=== PATIENT | male | born 1945 | race Caucasian/White ===

== ENCOUNTER 2024-02-15 12:42 | Outpatient (AMB) | payer MEDICARE, OTHER, SELFPAY ==
--- NOTE | 2024-02-15 13:03 | MHC.OFFVIS ---
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 Intake Note: New dx atherosclerotic seen on MRI feeling good Wool Cleaner Required: No Allergies atorvastatin Allergy (Unknown, Verified 01/31/19 00:00) pravastatin Allergy (Unknown, Verified 01/31/19 00:00) simvastatin Allergy (Unknown, Verified 01/31/19 00:00) Kmeanxn-ERU-EoJ Reductase Inhibitor [ZXQGMDU-SXH-AGV REDUCTASE INHIBITOR] Allergy (Unknown, Unverified 11/30/19 16:17) UNKNOWN Medication List - Last Reconciled 02/15/24 by Ross Diop MD ezetimibe 10 mg PO DAILY famotidine 20 mg PO DAILY fenofibrate nanocrystallized 145 mg PO DAILY mycophenolate mofetil 1,000 mg PO BID pyridostigmine bromide (Mestinon) 60 mg PO BID HPI Comments Details: Thank you for referring Tiffanie in cardiology consultation today for management of atherosclerotic cardiovascular disease. Patient is 78-year-old male says extremely elderly and does a lot of work outs without any restriction. Recently had a workup done because of his lower back issues and was noted to have significant atherosclerotic disease in his abdominal aorta. He has not had any significant cardiac symptoms of exertional chest pain or shortness of breath. He was longstanding history of hyperlipidemia but has been intolerant to multiple different statins as recorded in his chart. He is currently on Zetia and fenofibrate. No recent lipid panel is noted. He has no history of hypertension although noted that after recent COVID booster shot his blood pressure is significantly elevated. Blood pressures been gradually coming down. Today is slightly elevated but says due to stress from recent travel, he drove yesterday from [place]. He has had no history of hypertension. Denies any heart failure symptoms. Denies any prolonged palpitations, lightheadedness, syncope. [facility] Medical History Statin intolerance Review of Systems Const Denies chills, Denies daytime sleepiness, Denies fatigue, Denies fever(s), Denies frequent falls, Denies poor appetite, Denies snoring, Denies stops breathing during sleep, Denies weakness, Denies weight gain and Denies weight loss Eyes Denies loss of vision ENT Denies dizziness and Denies hearing loss Card Denies chest pain, Denies claudication, Denies leg edema, Denies lightheadedness, Denies palpitations, Denies dyspnea, Denies dyspnea on exertion and Denies orthopnea Resp Denies cough, Denies excessive phlegm production, Denies dyspnea, Denies dyspnea on exertion, Denies snoring and Denies wheezing GI Denies abdominal pain, Denies hematochezia, Denies change in bowel habits, Denies nausea and Denies vomiting Denies dysuria and Denies urinary frequency Musc Denies arthralgias, Denies muscle weakness, Denies numbness and Denies other (frequent falls) Skin/Breast Denies nail changes and Denies rash Neuro Denies Abnormal speech present, Denies dizziness, Denies frequent falls, Denies loss of vision, Denies memory loss, Denies numbness and Denies weakness Psych Denies depression and Denies memory loss Endo Denies fatigue and Denies palpitations Valdez/Lymph Reports easy bruising and Reports other (anemia) Aller/Immun Denies wheezing Physical Exam Vital Signs: Last Vital Signs Pulse 72 02/15/24 13:04 BP 142/72 H 02/15/24 13:04 BMI result Body Mass Index 22.4 Const General: cooperative, comfortable, no acute distress, alert, awake, Physically active and well groomed Nutritional Appearance: well nourished and thin Orientation/consciousness: patient oriented x3 Limitations: no limitations HEENT Head: Yes normocephalic and Yes atraumatic Neck Neck: Yes trachea midline, Yes supple and Yes no JVD Resp Effort & Inspection: normal respiratory effort Auscultation: clear to auscultation bilaterally Cardio Jugular venous distension: no JVD Palpation: normal PMI Rate: regular rate Rhythm: regular rhythm Heart sounds: S1 normal heart sound present, S2 normal heart sound present, no click, no gallops, no murmurs and no rubs GI Auscultation: normal bowel sounds Skin General skin exam: no rashes or lesions noted Neuro General: patient oriented x3 and no focal motor deficits Speech: No Abnormal speech present Extrem General: Yes no clubbing, cyanosis or edema Psych Appearance: grossly normal Office Procedures EKG Details: EKG shows normal sinus rhythm with right bundle-branch block 53203-Ipffupjnfhyhtdfad, Complete Assessment & Plan Assessment & Plan (1) Atherosclerotic cardiovascular disease: Code(s): I25.10 - Atherosclerotic heart disease of [place] coronary artery without angina pectoris Category: Medical Plan: Atherosclerotic cardiovascular disease with known prior carotid disease and now noted severe calcification abdominal aorta. We discussed about process of atherosclerosis being a systemic process. Based on right bundle-branch block which is unchanged. He currently has no significant symptoms although asymptomatic myocardial ischemia is likely. Would suggest exercise stress echocardiogram to assess functional capacity and presence of prognostically significant obstructive coronary artery disease. Will also suggest echocardiogram to evaluate for LV systolic and diastolic function to evaluate for wall motion abnormality. Meanwhile given diffuse atherosclerotic process I have advised him to start low-dose aspirin therapy. Also advised to follow-up lipid panel in near future along with CRP. Further treatment based on the findings of lipid panel may need further intensification of lipid therapy. This was discussed with him. His blood pressure is slightly elevated but there is increased stress recently given recent long travel. Advised to monitor blood pressure at home maintain a log. Will follow up in 6 weeks time, sooner p.r.n.. Thank allowing me to partake in his care Orders: Orders CRP High Sensitivity Today E78.5 - Hyperlipidemia, unspecified, I25.10 - Atherosclerotic heart disease of [place] coronary artery without angina pectoris CA echo transthoracic complete Today I25.10 - Atherosclerotic heart disease of [place] coronary artery without angina pectoris Lipid Panel Today I25.10 - Atherosclerotic heart disease of [place] coronary artery without angina pectoris CA echo stress exercise Today I25.10 - Atherosclerotic heart disease of [place] coronary artery without angina pectoris Medications: New aspirin (Ecotrin Low Strength) 81 mg PO DAILY 30 tabs 0RF I25.10 - Atherosclerotic heart disease of [place] coronary artery without angina pectoris Coding Level of Care Code New Pt Level 4 (90690) Complex EM visit Add On G2211 Diagnoses Atherosclerotic cardiovascular disease I25.10 CPT Codes EKG - CPT: 72675-Zvhvzdudldkmsikqj, Complete ([id number])
[2024-02-15 13:04] VITALS: BP 142/72; PULSE 72; BMI 22.4
== END 2024-02-15 13:42 | disposition home or self-care (01) ==
PROVIDERS: PCP Internal Medicine; Visit Provider Internal Medicine Cardiovascular Disease
DX: I25.10 Atherosclerotic heart disease of native coronary artery without angina pectoris (principal)
CPT/HCPCS: 93010; 99204; G2211

== ENCOUNTER → 2024-02-15 12:42 | Outpatient (BNVA) | payer MEDICARE, OTHER, SELFPAY | PROVIDERS: PCP Internal Medicine; Visit Provider Internal Medicine Cardiovascular Disease | DX: I25.10 Atherosclerotic heart disease of native coronary artery without angina pectoris (principal); E78.5 Hyperlipidemia, unspecified | CPT/HCPCS: 93005; 99202 ==

== ENCOUNTER → 2024-02-23 08:17 | Outpatient (REF) | payer MEDICARE, OTHER, SELFPAY ==
--- NOTE | 2024-02-23 08:23 | CA_ITS ---
Transthoracic Echocardiogram Patient (Last, First, Middle): Tiffanie Feliz A Gender: Male Date of : 1945 Age: 78 Procedure Date: 02/23/2024 Procedure Type: Transthoracic Echocardiogram Location: OP Height: 180.34 cm Weight: 79.38 kg BSA: 1.99 m2 Heart Rate: bpm BP: 135 / 80 mmHg Preflight Mechanic: MUSTAPHA Referring MD: Ross Diop MD Grader Green Meat: Ross Diop MD Symptoms: I25.10 - Atherosclerotic heart disease of [place] coronary artery without... Study Quality: Adequate ECG Rhythm: Sinus Conclusions: - 1. Normal LV ejection fraction 55-60% with grade 1 diastolic dysfunction with suggestion of underlying coronary disease 2. Mild aortic regurgitation 3. Mildly dilated ascending aorta at 3.7 cm 4. No gross pericardial effusion Findings Left Ventricle Normal left ventricular size, thickness, and systolic function. The visually estimated ejection fraction is between 55-60%. Spectral Doppler is indicative of an impaired relaxation filling pattern. E/E prime ratio is <8, consistent with normal filling pressures. Evidence suggests grade I (mild) diastolic dysfunction. Wall Motion Rest Echo Findings The inferoseptal wall, inferolateral wall, the basal inferior, and mid inferior segments are hypokinetic. All other scored wall segments showed normal motion. Right Ventricle Normal right ventricular cavity size and systolic function. Atria Both atria are normal in size. There is no evidence of interatrial shunt. Aortic Valve There is mild calcification of the aortic valve. There is no aortic valve stenosis. There is mild aortic valve regurgitation. Mitral Valve Normal mitral valve structure and function. There is mild mitral annular calcification. There is trace mitral valve regurgitation. There is no mitral valve stenosis. Pulmonic Valve The pulmonic valve is likely normal. Tricuspid Valve Normal tricuspid valve structure. Tricuspid regurgitation envelope is inadequate for calculation of right ventricular systolic pressure. Normal right atrial pressure. Great Vessels The pulmonary artery was not well visualized. There is mild dilatation of the ascending aorta measuring 3.70 cm. Venous The inferior vena cava is normal in size and collapses greater than 50% with inspiration. Pericardium/Pleural There is no evidence of pericardial effusion. Measurements 2D Linear Measurements IVSd: 1.07 0.6-0.9/0.6-1.0 cm LVIDd: 4.23 3.9-5.3/4.2-5.9 cm LVIDd Index: 2.13 2.4-3.2/2.2-3.1 cm/m2 LVIDs: 2.66 2.0-3.6 cm LVPWd: 0.96 0.7-1.1 cm LA Diam: 2.80 2.7-3.8/3.0-4.0 cm LAIDs Index: 1.41 1.5-2.3 cm/m2 LV Mass: 176.90 67-162/88-224 g LV Mass Index: 88.90 43-95/49-115 g/m2 LVOT Diam: 2.30 3.0+(-)1.3 cm 2D Systolic Function EF 4C: 57.20 >55% EF 2C: 63.30 >55% EF BiP: 59.70 >55% Mitral Valve MV Pk E: 0.40 MV PK A: 1.00 MV Decel Time: 265.00 E/A: 0.40 E'Lateral: 5.55 E'Medial: 5.00 E/E' Med: 8.10 E/E' Lat: 7.30 PHT: 78.00 MVA PHT: 2.82 Decel Sullivan: 1.52 Aortic Valve AoV Pk Kraig: 1.15 AoV Mn Kraig: 0.80 AoV VTI: 0.24 AoV Pk Grad: 5.00 Aov Mn Grad: 3.00 KAYLA Cont.VTI: 3.46 LVOT LVOT Pk Kraig: 0.95 LVOT Mn Kraig: 0.59 LVOT VTI: 0.20 LVOT Pk Grad: 4.00 LVOT Mn Grad: 2.00 LVOT Diam: 2.30 LVOT Area: 4.15 Diastolic Function MV Pk E: 0.40 MV Pk A: 1.00 E/A: 0.40 E'Medial: 5.00 E/E' Med: 8.10 E' Laterial: 5.55 E/E' Lat: 7.30 Right Ventricle TAPSE (mm): 22.20 TVS' Kraig: 11.60 Tricuspid Valve RA Press: 3.00 Great Vessels Aorta Sinus of Valsalva: 4.10 2.0-3.[address] [place]: 3.11 1.7-3.4 cm Ao Asc: 3.70 2.1-3.4 cm Updated in Other Vendor System with Status of Final Ross Diop MD electronically signed on 02/24/2024 4:20:51 PM with status of Final
--- OUTSIDE RECORDS SUMMARY | 2024-02-23 23:02 | XMS_ITS | Data Portability ---
Author Organization [facility], [facility] Address [address] [place] [address] Assessment No assessment recorded. Plan of Treatment Reminders Order Date Submit Date Provider Last Modified By Organization Details Last Modified Time Details Appointments None record ed. Lab None record ed. Referral None record ed. Procedures None record ed. Surgeries None record ed. Imaging None record ed. Medication Orders None record ed. Patient TargetsNo targets recorded. Patient InstructionsNo instructions recorded. Reason for Referral None Reported. Results Created Date Observation Date Name Description Value Unit Range Abnormal Flag Note LastModifiedBy Organization Detail LastModifiedTime 11/12/19 24 02/26/2023 imagi ng/di agnos tic resul t No observ ation record ed. [email or web address] Not Available 10/15 21:27:10 11/12/19 24 04/12/2018 imagi ng/di agnos tic resul t No observ ation record ed. [email or web address] Not Available 10/15 21:27:48 11/12/19 24 04/07/2018 imagi ng/di agnos tic resul t No observ ation record ed. [email or web address] Not Available 10/15 21:27:49 Result Notes None recorded. Problems Name Problem SNOMED Code Status Onset Date Resolution Date Notes Provider Name and Address Organization Details Recorded Time No complaint s [id number] Active Status: 'I'; Not Available [facility] 4 09:25:04 Trigger finger of right hand [id number] Active 2015 Problem Code: M65.331; Problem Code Type: ICD-10; Status: 'A'; Not Available [facility] 4 11:58:30 Problem Notes None recorded. Procedures Surgical History None recorded. Imaging Results Imaging Date Name Status LastModified by Organiz ation Details LastModified Time 02/26/2023 imaging/diag nostic result completed Information not available 11/12/2023 21:27:10 04/12/2018 imaging/diag nostic result completed Information not available 11/12/2023 21:27:48 04/07/2018 imaging/diag nostic result completed Information not available 11/12/2023 21:27:49 Procedure Notes None recorded. Medical Equipment None Reported. Allergies Allergen ID Allergen Name Allergen Category Reaction Reaction Severity Criticality Documentation Date Start Date Code Code System Note Provider Name and Address Organization Details Recorded Time 74697 Product containin g 3-hydroxy -3-methyl glutaryl- coenzyme A reductase inhibitor (product) medicatio n Not available Not available Not available 05/17/20232017 81096 009 SNOMED Aller gyNam e: 'Stat ins'; Not Available [facility] 12:45:17 Medications Name Sig Start Date Stop Date Status Note LastModified by Organization Details LastModified Time tramadol 50 mg tablet TAKE 1 TABLET TWICE A DAY NEEDED FOR PAIN DO NOT DRIVE WHILE TAKING THIS MEDICATION active Not Available Not Available N ot Available mycophenolat e mofetil 500 mg tablet TAKE 2 TABLETS BY MOUTH TWICE A DAY active Not Available Not Available No t Available calcitonin (salmon) 200 unit/actuati on nasal spray INHALE 1 PUFF INTO ONE NOSTRIL ONCE A DAY, ALTERNATING NOSTRILS EVERY DAY FOR 30 DAYS active Not Available Not Available Not Available pyridostigmi ne bromide 60 mg tablet TAKE 1 TABLET BY MOUTH TWICE A DAY-INCREAS E DIRECTED active Not Available Not Available No t Available diclofenac sodium 75 mg tablet,delay ed release TAKE 1 TABLET BY MOUTH NEEDED IN THE MORNING AND AT BEDTIME FOR PAIN DO NOT CRUSH, CHEW, OR SPLIT active Not Available Not Available No t Available ezetimibe 10 mg tablet TAKE 1 TABLET BY MOUTH EVERY DAY active Not Available Not Available No t Available fenofibrate nanocrystall ized 145 mg tablet TAKE 1 TABLET BY MOUTH EVERY DAY active Not Available Not Available No t Available cholecalcife rol (vitamin D3) 1,250 mcg (50,000 unit) capsule TAKE 1 CAPSULE ONCE A WEEK active Not Available Not Available Not Available oxycodone HCl-oxycodon e-ASA as directed 1-2 Tabs po q 4-6 [address] pain[address] NOT DRIVE WHILE TAKING THIS MEDICATION 2018 active Statu s: 'Curr ent'; Not Available Not Available Not Available Vitals Date Recorded Body height Body mass index (BMI) Body weight Provider Name and Address Organization Details Last Updated DateTime 06/17/2023 180.34 cm 24.4 kg/m2 21236.66 g GERMAINE PEGUERO [place] - [facility] 06/17/2023 14:31:21 Social History None recorded. Functional Status None recorded. Mental Status None recorded. Family History Nothing Reported. Medical History Condition Response Coronary Artery Disease N Anxiety/Depression N Emphysema N COPD N Pacemaker N Vascular Disease N Gastrointestinal Disease N Autoimmune disease N Orthotics N Arthritis N Blood Clot N Acid Reflux (GERD) N Cancer N Stroke N Rheumatoid Arthritis N Arrhythmia N Fibromyalgia N Allergies/Hayfever N Thyroid Problems N Anemia N Kidney/Bladder Problems N Heart Attack ([place]) N Diabetes N Bleeding Disorder N Seizures/Epilepsy N AIDS/HIV N Congestive Heart Failure (CHF) N Asthma N Peripheral Vascular Disease N Sleep Apnea N Hepatitis N Heart Disease N Pulmonary Embolism N Hypertension N Osteoporosis N Past Encounters Encounter ID Performer Location Encounter Start Date Encounter Closed Date Diagnosis/Indication Diagnosis SNOMED-CT Code Diagnosis ICD10 Code [id number] Haim Mcqueen MD [address] [place] [address] 06/17/2023 13:40:12 07/07/2023 11:11:40 Compression fracture of thoracic vertebra 2681201184 104 M48.54XS Compressio n fracture of lumbar spine 285967610 M48.56XS Osteoporot ic fracture of vertebra 9067000980 7167073 M80.08XS Health Concerns Section Related Observation LastModified by Organization Detai ls LastModified Time None Recorded Concern Status LastModified by Organization Details LastModified Time None Recorded Advance Directives Directive None Recorded Payers Encounter Date Sequence Insurance Name Policy Number Policy Juan Covered Member ID Juan Member ID Guarantor Name 06/17/2023 1 [place] [employer] Tiffanie Feliz Jr [id number] Tiffanie Feliz Jr 06/17/2023 2 [facility] [id number] Tiffanie Feliz Jr [id number] Tiffanie Feliz Jr Notes Date Note Type Note Provider Name and Address Organization Details Recorded Time 06/17/2023 text/html 77-year-old male follows up for T12 and L1 compression fractures. Previously he was referred for kyphoplasty's which were completed. Today he states he is doing great. No back pain no leg pain. Also was seen by his primary care however was not placed on treatment for osteoporosis. Haim Mcqueen MD [address] [place] [address] [address], [place], [address], [facility] - [facility] 06/17/2023 17:37:51
== END ==
LOC: HO.CARD 08:17
PROVIDERS: Visit Provider Internal Medicine Cardiovascular Disease
DX: I25.10 Atherosclerotic heart disease of native coronary artery without angina pectoris (principal)
CPT/HCPCS: 93306

== ENCOUNTER → 2024-02-23 08:23 | Outpatient (BNV) | payer MEDICARE, OTHER, SELFPAY | PROVIDERS: Visit Provider Internal Medicine Cardiovascular Disease | DX: I35.1 Nonrheumatic aortic (valve) insufficiency (principal); I35.8 Other nonrheumatic aortic valve disorders; I34.81 Nonrheumatic mitral (valve) annulus calcification | CPT/HCPCS: 93306 ==

== ENCOUNTER → 2024-02-28 10:39 | Outpatient (REF) | payer MEDICARE, OTHER, SELFPAY ==
--- NOTE | 2024-02-28 10:44 | CA_ITS ---
Acquisition Time: 2024-02-28 11:06:51 Total Exercise Time: 00:05:47 Test Indications: CAD Medications: EZETIMIBE FAMOTIDINE FENOFIBRATE MESTINON Protocol: VEE Max HR: 142 BPM 101% of Pred: 140 BPM Max BP: 154/080 mmHG Max Work Load: 5.1 METS Exercise Stress Test with exercise 5 mins 47 secs of Vee protocol, held at stage 1, and increased the incline to 12% at 3 min, acheiving 90% MPHR, without any anginal symptoms, with frequent PVCs, with normotensive response to exercise. Without EKG changes meeting criteria for ischemia. Echo images obtained by tech at rest and post peak exercise. Definity contrast used. Test reviewed with Dr. Nichole. Referred By: Ross Diop Overread By: INDIGO GONZALEZ
== END ==
LOC: HO.CARD 10:39
PROVIDERS: PCP Internal Medicine; Visit Provider Internal Medicine Cardiovascular Disease
DX: I25.10 Atherosclerotic heart disease of native coronary artery without angina pectoris (principal)
CPT/HCPCS: 93350; Q9957

== ENCOUNTER → 2024-02-28 10:44 | Outpatient (BNV) | payer MEDICARE, OTHER, SELFPAY | PROVIDERS: PCP Internal Medicine; Visit Provider Nurse Practitioner Family | DX: I25.10 Atherosclerotic heart disease of native coronary artery without angina pectoris (principal); R94.31 Abnormal electrocardiogram [ECG] [EKG]; I49.3 Ventricular premature depolarization | CPT/HCPCS: 93016; 93018; 93350; 93352 ==

== ENCOUNTER 2024-03-30 09:39 | Outpatient (AMB) | payer MEDICARE, OTHER, SELFPAY ==
[2024-03-30 10:00] VITALS: BP 142/80; PULSE 71; BMI 22.9
--- NOTE | 2024-03-30 10:00 | A.OFFVIS_ITS ---
Vital Signs 03/30/24 10:00 Height 6 ft Weight 168 lb 13.985 oz BMI 22.9 BP 142/80 H Blood Pressure Location Rt brachial Position Sitting Pulse 71 Pulse Source Pulse Oximeter Intake Visit Reasons: 6 wk s/p echo/ stress echo/ lipids/ NS Learning Designer Required: No Allergies atorvastatin Allergy (Unknown, Verified 03/30/24 10:04) Muscle cramps pravastatin Allergy (Unknown, Verified 03/30/24 10:04) Muscle Pain simvastatin Allergy (Unknown, Verified 03/30/24 10:04) Muscle cramps Yavlcen-DSD-ApO Reductase Inhibitor [HUNLFXE-QEW-ANI REDUCTASE INHIBITOR] Allergy (Unknown, Unverified 03/30/24 10:04) UNKNOWN Medication List - Last Reconciled 03/30/24 by EMILY BernsteinC aspirin (Ecotrin Low Strength) 81 mg PO DAILY ezetimibe 10 mg PO DAILY famotidine 20 mg PO DAILY fenofibrate nanocrystallized 145 mg PO DAILY mycophenolate mofetil 1,000 mg PO BID pyridostigmine bromide (Mestinon) 60 mg PO BID HPI HPI 6 wk s/p echo/ stress echo/ lipids/ NS: Details: Tiffanie is an 78-year-old male with past medical history of hyperlipidemia, prostate CA who was recently found to have calcification in his abdominal aorta and he was referred to Cardiology in follow-up. On last visit a stress test and echocardiogram were ordered and he now presents for follow-up. Today he reports that he has been feeling well with no concerning symptoms. He denies chest discomfort at rest or with activity. He has no shortness of breath, PND, orthopnea or edema. He has no heart palpitations, lightheadedness, presyncope, syncope, falls. He reports being very active each day and has excellent energy and activity tolerance. He has no known cardiac history. He describes himself as being very healthy. [facility] Medical History Statin intolerance Social History Alcohol intake: never Review of Systems Const All systems reviewed & are unremarkable except as noted in HPI and below ENT Denies dizziness Card Denies chest pain, Denies chest pain at rest, Denies chest pain with activity, Denies rapid heart rate, Denies pedal edema, Denies edema, Denies leg edema, Denies lightheadedness, Denies palpitations, Denies dyspnea, Denies dyspnea on exertion and Denies orthopnea Resp Denies cough, Denies dyspnea and Denies dyspnea on exertion GI Denies hematochezia and Denies change in stool character Musc Denies abnormal gait, Denies limited range of motion, Denies muscle cramps, Denies muscle weakness, Denies numbness, Denies radiating pain into limb, Denies stiffness and Denies tingling Neuro Denies abnormal gait, Denies dizziness, Denies numbness and Denies tingling Endo Denies palpitations Physical Exam Vital Signs: Last Vital Signs Pulse 71 03/30/24 10:00 BP 142/80 H 03/30/24 10:00 BMI result Body Mass Index 22.9 Const General: cooperative, healthy appearing, comfortable and no acute distress Orientation/consciousness: patient oriented x3 Neck Neck: Yes normal visual inspection Resp Effort & Inspection: normal respiratory effort Auscultation: clear to auscultation bilaterally, no rales, no rhonchi and no wheezes Cardio Jugular venous distension: no JVD Rate: regular rate Rhythm: regular rhythm Heart sounds: S1 normal heart sound present, S2 normal heart sound present, no murmurs and no rubs Neuro General: patient oriented x3 Extrem General: Yes normal to inspection Psych Appearance: grossly normal Mental Status: mental status grossly normal Speech and movement: Normal speech and movement present Assessment & Plan Assessment & Plan (1) Atherosclerotic cardiovascular disease: Code(s): I25.10 - Atherosclerotic heart disease of [place] coronary artery without angina pectoris Category: Medical Plan: Recent finding of calcification in the abdominal aorta. He was then referred to Cardiology and underwent testing including echocardiogram on 02/23/2024 showing EF 55-60%, grade 1 diastolic dysfunction, mild aortic regurgitation, inferior septal, inferior lateral, basal inferior and mid inferior segments hypokinetic, ascending aorta 3.7 cm. Exercise stress echocardiogram 02/28/2024 showed exercise close to 6 minutes with no symptoms or EKG changes with echo images showing possible nontransmural infarct of the basal inferior and inferior septal region, no ischemia. EKG done last visit showed sinus rhythm with right bundle branch block. Test results reviewed with him in detail. He has no anginal symptoms. He has no known history of prior [place]. Informed him that he may have had nontransmural infarct in the past. In the absence of symptoms his treatment will be medical management and risk factor modification. Will have him continue aspirin indefinitely. Intolerant to statins and currently on Zetia and fenofibrate. Will obtain his last lipid profile from his PCP office. If LDL is not well controlled then will plan to start PCSK9 inhibitor. He is agreeable to this plan. Signs and symptoms of angina reviewed and he states understanding. Continue physical activity as tolerated. Cardiology office visit 6 months, sooner if needed. (2) Right bundle branch block (RBBB) determined by electrocardiography: Code(s): I45.10 - Unspecified right bundle-branch block Category: Medical Plan: Present on EKG. (3) Hyperlipidemia: Code(s): E78.5 - Hyperlipidemia, unspecified Category: Medical Plan: [place] LDL goal less than 70 in patient with CAD. Management as above. (4) Abnormal nuclear stress test: Code(s): R94.39 - Abnormal result of other cardiovascular function study Category: Medical Plan: As above Plan Time spent on chart review, documentation, interview and assessment Coding Level of Care Code Est Pt Level 4 (26480) Complex EM visit Add On G2211 Diagnoses Atherosclerotic cardiovascular disease I25.10 Right bundle branch block (RBBB) determined by electrocardiography I45.10 Hyperlipidemia E78.5 Abnormal nuclear stress test R94.39 Time Spent (min) 30
--- OUTSIDE RECORDS SUMMARY | 2024-03-30 10:58 | XMS_ITS | Continuity of Care Document ---
Author Organization [facility] Address [address] [place] [address]- Care Team Providers Care Fuel Manager Name Role Phone Candice Choudhury MD Primary Care Physician Encounter [facility] [id number] Date(s): 11/26/23 - 03/25/24 [facility] [address] [place] [address] [place] Attending Physician: Dileep Pereira MD Admitting Physician: Dileep Pereira MD Referring Physician: Candice Choudhury MD Encounter Type: Pre-OutPatient One Time Allergies, Adverse Reactions, Alerts Substance Criticality Severity Reaction Reaction Severity Status statins Unable to assess criticality Persistent Moderate joint aches Active Medications CellCept 500 mg oral tablet 2 tablet = 1,000 mg, By Mouth, 2 times a day, resume once doen with antibiotic course, 0 Refills, Maintenance, 06/07/20 3:03:00 PM EDT, Partial fill upon patient request if the prescription is for a schedule II opioid drug. Start Date: 06/07/20 Status: Ordered Repeat number: 1 CoQ10 = 300 mg, By Mouth, Daily, 0 Refills, Maintenance, 06/07/20 3:04:00 PM EDT, Partial fill upon patient request if the prescription is for a schedule II opioid drug. Start Date: 06/07/20 Status: Ordered Repeat number: 1 fenofibrate 145 mg oral tablet 1 tablet = 145 mg, By Mouth, Daily, Maintenance, 05/11/14 2:03:04 PM EST, Tablet Start Date: 05/11/14 Status: Ordered Repeat number: 1 Flomax 0.4 mg oral capsule 0.4 mg, 1, capsule, By Mouth, Daily, # 30 capsule, Refills 1, Tot. Refills 1, Maintenance, 11/07/20 9:11:00 AM EDT, Route to Pharmacy Electronically, [facility]/pharmacy #[id number], Partial fill upon patient request if the prescription is for a schedule II opioid drug., 180.34, cm, 10/18/20 6:32:00 EDT, Height,76.7, kg, 10/18/20 6:32:00 EDT, Dry Weight Start Date: 11/07/20 Status: Ordered Quantity: 30.0 Unit: capsule Repeat number: 2 Lysine = 200 mg, By Mouth, Daily, Maintenance, 05/11/14 2:05:28 PM EST Start Date: 05/11/14 Status: Ordered Repeat number: 1 Mestinon 60 mg oral tablet 60 mg, 1, tablet, By Mouth, 3 times a day, Refills 0, Maintenance, 06/07/20 3:03:00 PM EDT, Partial fill upon patient request if the prescription is for a schedule II opioid drug. Start Date: 06/07/20 Status: Ordered Repeat number: 1 Multi Vitamin+ 0 Refills, Maintenance, 06/07/20 3:07:00 PM EDT, Partial fill upon patient request if the prescription is for a schedule II opioid drug. Start Date: 06/07/20 Status: Ordered Repeat number: 1 Vitamin C 500 mg oral tablet 1 tablet = 500 mg, By Mouth, Daily, Maintenance, 05/11/14 2:04:25 PM EST, Tablet Start Date: 05/11/14 Status: Ordered Repeat number: 1 Vitamin D 33098 iu oral capsule See Instructions, 25mg, Refills 0, Maintenance, 10/04/20 10:43:00 AM EDT, Instructions Replace Required Details, Partial fill upon patient request if the prescription is for a schedule II opioid drug. Start Date: 10/04/20 Status: Ordered Repeat number: 1 Zetia 10 mg oral tablet 1 tablet = 10 mg, By Mouth, Daily, Maintenance, 05/11/14 2:02:33 PM EST, Tablet Start Date: 05/11/14 Status: Ordered Repeat number: 1 Problem List Condition Confirmation Course Effective Dates Status H ealth Status Informant Adenocarcinoma of prostate Confirmed Active Left inguinal hernia Confirmed Active Social History Social History Type Response Smoking Status Unknown if ever smok ed entered on: 05/16/14 Sex Male Sex Representation Male (finding) Implantable Device List Procedure Provider Procedure Date Device Type Site Repair Hernia Inguinal Open Tiffany STEEN MD (Surgeon), Kai 10/18/20 Unknown Groin Left Device Identifier Serial Number Lot or Batch Number Manufacturing Date Expiration Date Distinct Identification Code MRI Safety Implantable Status Assigning Authority Unknown Unknown Unknown Unknown 01/09/22 Unknown Unknown Active Un known Procedure Provider Procedure Date Device Type Site Repair Hernia Inguinal Open Tiffany STEEN MD (Surgeon), Kai 10/18/20 Unknown Groin Left Device Identifier Serial Number Lot or Batch Number Manufacturing Date Expiration Date Distinct Identification Code MRI Safety Implantable Status Assigning Authority Unknown Unknown Unknown Unknown 02/09/25 Unknown Unknown Active Un known Patient Care team information Care Team Personnel Name: Wander Weir RN Position: [facility] RN Member Role: Primary Care Nurse Name: Pilar Mills Position: [facility] Outreach Member Role: Lifetime Consulting Physician Name: Candice Choudhury MD Position: [facility] Physician - Primary Care Member Role: PCP Address: [address] [place] [address] Telecom: Care Team Related Persons Name: ERICA CASTILLO Insurance Providers Guarantor name: ASHWINI CASTILLO Health Plan Information #: 1 Payer: MEDICARE PART B OUTPT Member Number: [id number] Policy Number: NA Group Number: NA Health Plan Information #: 2 Payer: [facility] Member Number: [id number] Policy Number: NA Group Number: [id number]
--- OUTSIDE RECORDS SUMMARY | 2024-03-30 10:58 | XMS_ITS | Data Portability ---
Author Organization [facility] Address [address] [place] [address] Assessment No assessment recorded. Plan of Treatment [...] Organization Details Recorded Time No complaint s [id number] Active Status: 'I'; Not Available [facility] 4 09:25:04 Trigger finger of right hand [id number] 12399 Active 2015 Problem Code: M65.331; Problem Code Type: ICD-10; Status: 'A'; Not Available [facility] 4 11:58:30 Problem Notes None recorded. Procedures [...] Name and Address Organization Details Recorded Time 81615 Product containin g 3-hydroxy -3-methyl glutaryl- coenzyme A reductase inhibitor (product) medicatio n Not available Not available Not available 05/17/20232017 12552 009 SNOMED Aller gyNam e: 'Stat ins'; Not Available [facility] 12:45:17 Medications Name Sig Start Date Stop [...] Updated DateTime 06/17/2023 180.34 cm 24.4 kg/m2 77984.66 g GERMAINE PEGUERO [place] - [facility] 06/17/2023 14:31:21 Social History None recorded. Functional Status None recorded. Mental Status None recorded. Family History Nothing Reported. Medical History Condition Response Allergies/Hayfever N Coronary Artery Disease N Anxiety/Depression N Emphysema N Thyroid Problems N COPD N Pacemaker N Anemia N Kidney/Bladder Problems N Vascular Disease N Heart Attack ([place]) N Gastrointestinal Disease N Diabetes N Autoimmune disease N Bleeding Disorder N Orthotics N Arthritis N Seizures/Epilepsy N Blood Clot N AIDS/HIV N Congestive Heart Failure (CHF) N Acid Reflux (GERD) N Cancer N Stroke N Asthma N Peripheral Vascular Disease N Sleep Apnea N Hepatitis N Heart Disease N Rheumatoid Arthritis N Arrhythmia N Pulmonary Embolism N Fibromyalgia N Hypertension N Osteoporosis N Past Encounters Encounter ID Performer Location Encounter Start Date Encounter Closed Date Diagnosis/Indication Diagnosis SNOMED-CT Code Diagnosis ICD10 Code Diagnosis Note [id number] Haim Mcqueen MD [employer] [address] [place] [address] 06/17/2023 13:40:12 07/07/2023 11:11:40 Compression fracture of thoracic vertebra [id number] 104 M48.54XS 77-year-ol d male approximat colt 2 months status post T12 and L1 kyphoplast y doing well. Presents today with no pain and is happy with his outcome. However he is currently not on treatment for his osteoporos is. August 2022 DEXA scan notes osteopenia however osteopenia with multiple insufficie ncy fractures warrants treatment per the most recent endocrinol ogy CPG's. I will refer him to an endocrinol ogist to be treated for his osteoporos is. He can follow-up with me on an as-needed basis. Compressio n fracture of lumbar spine [id number] M48.56XS Osteoporot ic fracture of vertebra [id number] 1289971 M80.08XS Health Concerns Section Related Observation LastModified by Organization Detai ls LastModified Time None Recorded Concern Status LastModified by Organization Details LastModified Time None Recorded Advance Directives Directive None Recorded Payers Encounter Date Sequence Insurance Name Policy Number Policy Juan Covered Member ID Juan Member ID Guarantor Name 06/17/2023 1 MEDICARE B-[place]: [facility] rede[employer] SERVICES Tiffanie Feliz Jr [id number] Tiffanie Feliz Jr 06/17/2023 2 [facility] INDEMNITY PLAN - [facility] [id number] Tiffanie Feliz Jr [id number] Tiffanie Feliz Jr Notes Date Note Type [...] on treatment for osteoporosis. Haim Mcqueen MD [address] [place], [place] [address] [address], [place], [address], [facility] - [facility] 06/17/2023 17:37:51
== END 2024-03-30 10:39 | disposition home or self-care (01) ==
PROVIDERS: PCP Internal Medicine; Visit Provider Nurse Practitioner Family
DX: I25.10 Atherosclerotic heart disease of native coronary artery without angina pectoris (principal); I45.10 Unspecified right bundle-branch block; E78.5 Hyperlipidemia, unspecified; R94.39 Abnormal result of other cardiovascular function study
CPT/HCPCS: 99214; G2211

== ENCOUNTER → 2024-03-30 09:39 | Outpatient (BNVA) | payer MEDICARE, OTHER, SELFPAY | PROVIDERS: PCP Internal Medicine; Visit Provider Nurse Practitioner Family | DX: I25.10 Atherosclerotic heart disease of native coronary artery without angina pectoris (principal); I45.10 Unspecified right bundle-branch block; E78.5 Hyperlipidemia, unspecified; R94.39 Abnormal result of other cardiovascular function study | CPT/HCPCS: 99212 ==

== ENCOUNTER 2024-04-07 10:48 | Outpatient (REF) | payer MEDICARE, OTHER, SELFPAY ==
--- OUTSIDE RECORDS SUMMARY | 2024-04-07 12:31 | XMS_ITS | Clinical Summary ---
Author Organization [address] [place] [address] [place] [phone] Phone Care Team Providers Care Maintenance Of Way Supervisor Name Role Phone Candice Choudhury MD Primary Care Provider [phone] Allergies Active Allergy Reactions Criticality Noted Date Comments Atorvastatin 08/29/2012 Other Reaction(s): Myalgia and Joint Pain Pravastatin 08/29/2012 Other Reaction(s): Myalgia and Joint Pain Simvastatin 08/29/2012 Other Reaction(s): Myalgia and Joint Pain Medications Medication Sig Dispensed Refills Start Date End Date Status famotidine (PEPCID) 20 mg tablet Take 1 tablet (20 mg total) by mouth 1 (one) time each day. 2023 Active fenofibrate (TRICOR) 145 mg tablet Take 1 tablet (145 mg total) by mouth 1 (one) time each day. 10/18/2023 Active ezetimibe (ZETIA) 10 mg tablet Take 1 tablet (10 mg total) by mouth 1 (one) time each day. 10/18/2023 Active cholecalciferol (VITAMIN D-3) 250 mcg (10,000 unit) capsule Take 10,000 Units by mouth daily. Active mirabegron (MYRBETRIQ) 25 mg 24 hr tablet Take 25 mg by mouth daily. Active mycophenolate (CELLCEPT) 500 mg tablet Take 1,000 mg by mouth 2 times daily. Active lysine 1,000 mg tablet Take 1 tablet (1,000 mg total) by mouth 1 (one) time each day. Active pyRIDostigmine (MESTINON) 60 mg tablet Take 60 mg by mouth 2 times daily. Active FREESTYLE LANCETS MISC 1 Strip by Does not apply route 3 times daily as needed for Other. 09/04/2019 Active blood sugar diagnostic (FreeStyle Lite Strips) test strip 1 Strip by In Vitro route 4 times daily. 09/04/2019 Active coenzyme Q-10 100 mg capsule Take 100 mg by mouth daily. Active omega-3 acid ethyl esters (LOVAZA) 1 gram capsule Take by mouth. Active ascorbic acid (Vitamin C) 500 mg tablet 1 daily Active multivitamin (MULTIPLE VITAMINS ORAL) 1 daily Active aspirin 81 mg EC tablet Take 1 tablet (81 mg total) by mouth 1 (one) time each day. 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 Pure hypercholesterolemia 04/23/2005 Encounters Date Type Department Care Team Description 03/13/2024 10:00 AM EST Office Visit [facility] - [place] [address] [place] [address] Guillermo Cai MD Abdominal aortic atherosclerosis (CMS/HCC) (Primary Dx) from Last 3 Months Immunizations Name Administration Dates Next Due Influenza Quadravalent, MDCK , 0.5ml, with preservative (Flucelvax) 6mo and older 02/03/2017 Influenza trivalent, 0.5mL ( Fluad) 65yo and older 12/22/2023,01/29/2022,12/18/2020,11/26 Influenza trivalent, 0.5mL, preservative free (Fluarix; FluLaval; Fluzone) ages 6mo and older (Afluria) 3 years and older 12/19/2019,12/29/2018,02/26/2016,03/19,02/28/2013,03/02/2012,03/13/2008 Moderna SARS-CoV-2 COVID-19, mRNA, LNP-S, preservative free 02/17/2021,06/10/2020,05/12/2020 Pneumococcal conjugate 13 va lent (Prevnar 13, PCV13) 2mo and older 11/26/2014 Pneumococcal polysaccharide 23 valent (Pneumovax 23) 2yo and older 02/26/2016,03/13/2008,07/13/2002 Td Tetanus diptheria (Tdvax) 7yo and older 09/08/2005 Tdap Tetanus diptheria acell ular pertussis (Boostrix; Adacel) 7yo and older 02/03/2017 Surgical History Surgery Date Site/Laterality Comments TONSILLECTOMY PROCEDURE: HISTORICAL TONSILLECTOMY ADENOIDECTOMY PROCEDURE: HISTORICAL ADENOIDECTOMY COLONOSCOPY W/ POLYPECTOMY 05/18/2005 PROCEDURE: NV COLSC FLX W/RMVL OF TUMOR POLYP LESION SNARE TQ; COMMENT: 1 cm tub ad ascending colon COLONOSCOPY 11/29/2006 PROCEDURE: NV COLONOSCOPY FLX DX W/COLLJ SPEC WHEN PFRMD; COMMENT: Negative, no polyps HERNIA REPAIR 03/15/2007 PROCEDURE: REPAIR INGUINAL HERNIA; COMMENT: right COLONOSCOPY 04/15/2012 PROCEDURE: HISTORICAL COLONOSCOPY; COMMENT: neg, next exam approx 2019. BACK SURGERY PROCEDURE: HISTORICAL BACK SURGERY; COMMENT: vertebroplasty - need records? Medical History Medical History Date Comments Pure hypercholesterolemia DX:Pur e hypercholesterolemia Type II or unspecified type diabetes mellitus without mention of complication, not stated as uncontrolled DX:Type II or unspecified ty pe diabetes mellitus without mention of complication, not stated as uncontrolled Personal history of colonic polyps DX:Personal history of colonic polyps Diastolic dysfunction DX:Diastol ic dysfunction; COMMENT: Echo 03/21/14, no other abnormalities Pancreatic mass DX:Pancreatic ma ss; COMMENT: Likely benign cyst, due for next ultrasound 02/2016 Gall stones DX:Gall stones Actinic keratosis, hx of DX:Acti antoinette keratosis, hx of Thoracic compression fractur e (CMS/HCC) 06/16/2023 DX:Thoracic compression frac ture ([facility]); COMMENT: 01/04 fell, T11,12, L5 mild compression fx, kyphoplasty Family History Medical History Relation Name Comments Other Dermatological Disorders Father T cell lymphoma ....probable mycosis fungoides Other Dermatological Disorders Mother Small skin cancers .......specifics unknown Relation Name Status Comments Daughter Alive 2 healthy Father (Age 84) T cell lym phoma, MD,CABG Maternal Grandfather DM Maternal Grandmother (Age 83) Co nancie cancer Mother (Age 86) MD [address] Cancer Paternal Grandfather Old age Paternal Grandmother Old age Uncle 2 Mat uncles DM Social History Tobacco Use Types Packs/Day Years Used Date Smoking Tobacco: Former Cigarettes Q uit: 03/15/1999 Smokeless Tobacco: Never Alcohol Use Standard Drinks/Week Comments No 0 (1 standard drink = 0.6 oz pur e alcohol) Sex and Gender Information Value Date Recorded Sex Assigned at Not on file Gender Identity Not on file Sexual Orientation Not on file Job Start Date Occupation Industry Not on file Not on file Not on file Obstetrics History Last Filed Vital Signs Vital Sign Reading Time Taken Comments Blood Pressure 110/70 03/13/2024 9:56 AM EST Pulse 80 03/13/2024 9:56 AM EST Temperature - - Respiratory Rate 16 03/13/2024 9:56 AM EST Oxygen Saturation - - Inhaled Oxygen Concentration - - Weight 77.1 kg (170 lb) 03/13/2024 9:56 AM EST Height 177.8 cm (5' 10 ) 03/13/2024 9:56 AM EST Body Mass Index 24.39 03/13/2024 9:56 AM EST Plan of Treatment Health Maintenance Due Date Last Done Comments Diabetes: Annual Retina Eye Exam 11/07/1955 Zoster Vaccines (1 of 2) 11/07/1962 RSV Immunization Patients 60+ Years Old (1 - 1-dose 75+ series) 11/07/2018 Colorectal Cancer Screening: Colonoscopy 02/14/2022 Medicare Annual Wellness Visit 02/14/2022 Social Influencers of Health Screening 02/14/2022 COVID-19 Vaccine ( season) 2023 02/17/2021, 06/10/2020, 05/12/2020 Diabetes: Blood Sugar Control Test (HGBA1C) 04/19/2024 10/18/2023, 10/18/2023 Falls Risk Assessment 06/15/2024 06/16/2023 Depression Screening 10/17/2024 10/18/2023 Diabetes: Annual Urine Albumin-Creatinine Ratio (uACR) 10/17/2024 10/18/2023 Diabetes: Annual Foot Exam 10/17/2024 10/18/2023 Diabetes: Annual GFR (Glomerular Filtration Rate) 10/17/2024 10/18/2023, 10/18/2023, 04/24/2019 DTaP,Tdap,and Td Vaccines (3 - Td or Tdap) 02/03/2027 02/03/2017, 09/08/2005 Cholesterol Screening (Lipid Panel) 10/17/2028 10/18/2023, 10/18/2023 Pneumococcal Vaccine: 65+ Years Completed 02/26/2016, 11/26/2014, 03/13/2008, Additional history exists Influenza Vaccine Completed 12/22/2023, , 12/18/2020, Additional history exists HIB Vaccines Aged Out No longer eligi ble based on patient's age to complete this topic HPV Vaccines Aged Out No longer eligi ble based on patient's age to complete this topic Hepatitis A Vaccines Aged Out No long er eligible based on patient's age to complete this topic Hepatitis B Vaccines Aged Out No long er eligible based on patient's age to complete this topic IPV Vaccines Aged Out No longer eligi ble based on patient's age to complete this topic MMR Vaccines Aged Out No longer eligi ble based on patient's age to complete this topic Meningococcal ACWY Vaccine Aged Out N o longer eligible based on patient's age to complete this topic RSV Immunization Patients Under 20 months Aged Out No longer eligible based on patient's age to complete this topic Varicella Vaccines Aged Out No longer eligible based on patient's age to complete this topic Procedures Procedure Name Priority Date/Time Associated Diagnosis Comments HM DEPRESSION SCREENING Routine 10/18/2023 URINE ALBUMIN CREATININE RATIO Routine 10/18/2023 ANNUAL BMP BLOOD TEST Routine 10/18/2023 HEMOGLOBIN A1C Routine 10/18/2023 LIPID PANEL Routine 10/18/2023 DIABETES FOOT EXAM Routine 10/18/2023 FALLS RISK ASSESSMENT Routine 06/16/2023 from Last 3 Months or Most Recently Relevant to Health Maintenance Results * Urine Albumin Creatinine Ratio (10/18/2023) Pathologist [facility] Urine Albumin Creatinine Ratio abstracted Historical Provider [facility] * Annual BMP Blood Test (10/18/2023) [facility] Annual BMP Blood Test abstracted Historical Provider [facility] * Depression Screening (10/18/2023) Pathologist [facility] Depression Screening abstracted [facility] Provider [facility] * Diabetes Foot Exam (10/18/2023) [facility] Diabetes: Annual Foot Exam abstracted [facility] Provider [facility] Hemoglobin A1c (10/18/2023) [facility] Hemoglobin A1C 6.1 6.5 % Blood Venous blood specimen / Unknown Historical Provider LAB BLOOD ORDERAB LES * (ABNORMAL) Lipid panel (10/18/2023) [facility] LDL/HDL Ratio 4 0 - 4 Triglycerides 188(A) 0 - 150 mg/dL Cholesterol 269(A) 0 - 200 mg/dL HDL 67 40 mg/dL LDL Cholesterol 165(A) 0 - 100 mg/dL Blood Venous blood specimen / Unknown Historical Provider LAB BLOOD ORDERAB LES * Falls Risk Assessment (06/16/2023) Falls Risk Assessment abstracted Historical Provider MD KIRA Regan from Last 3 Months or Most Recently Relevant to Health Maintenance Care Teams Maintenance Of Way Supervisor Relationship Specialty Start Date End Date Candice Choudhury MD [address] [place] [id number] PCP - General Internal Medicine 05/17/20
--- OUTSIDE RECORDS SUMMARY | 2024-04-07 12:32 | XMS_ITS | Clinical Summary ---
Author Organization [facility] Address [address] [place] [address] Care Team Providers Care Paper Cleaner Name Role Phone Candice Choudhury MD Primary Care Provider [phone] Allergies Active Allergy Reactions Criticality Noted Date Comments Atorvastatin 08/23/2020 Pravastatin 08/23/2020 Simvastatin 08/23/2020 Medications Medication Sig Dispensed Refills Start Date End Date Status mycophenolate (CELLCEPT) 500 MG tablet Take 500 mg by mouth 2 (two) times a day. 0 Active Cholecalciferol (Vitamin D3) 250 MCG (06165 UT) capsule Take 10,000 Units by mouth daily. 0 Active Lysine 1000 MG TABS Take 1 tablet by mouth daily. 0 Active pyridostigmine (MESTINON) 60 MG tablet Take 60 mg by mouth 2 (two) times a day. 0 Active ezetimibe (ZETIA) tablet 10 mg Take 10 mg by mouth daily. 0 Active fenofibrate (TRICOR) tablet 145 mg Take 145 mg by mouth daily. 0 Active Co-Enzyme Q-10 100 MG CAPS Take 1 capsule by mouth daily. 0 Active [place]-3 1000 MG CAPS Take 1 capsule by mouth daily. 0 Active ascorbic acid (VITAMIN C) 500 MG tablet Take 500 mg by mouth daily. 0 Active Multiple Vitamins-Minerals (MULTIVITAMIN ADULTS PO) Take 1 tablet by mouth daily. 0 Active Active Problems Problem Noted Date Diagnosed Date Gall stones 09/08/2020 Elevated red blood cell count 09/08/2020 Overview: Hemoglobin and hematocrit normal. JAK2 mutation not detected. Erythropoietin level normal. Myasthenia gravis 05/16/2019 Prostate cancer 09/11/2016 Cancer Staging:Clinical stage from 04/22/2020:Stage IIB(T1c, N0, M0, PSA: Less than 10, Tho 8-10) - Signed by Rai Mei MD on 09/08/2020 Overview: 05/05 tho 8; RT Diabetes mellitus type 2, uncomplicated 04/24/19 06 Pure hypercholesterolemia 04/23/2005 Family History Medical History Relation Name Comments Thyroid disease Daughter 1 Thyroid disease Daughter 2 Other Daughter 3 Sjogren's syndr ome Heart disease Father Lymphoma Father Heart disease Mother Relation Name Status Comments Daughter 1 Daughter 2 Daughter 3 Father Mother Social History Tobacco Use Types Packs/Day Years Used Date Smoking Tobacco: Former Smokeless Tobacco: Never Alcohol Use Standard Drinks/Week Comments Never 0 (1 standard drink = 0.6 oz pur e alcohol) Sex and Gender Information Value Date Recorded Sex Assigned at Not on file Gender Identity Not on file Sexual Orientation Not on file Last Filed Vital Signs Vital Sign Reading Time Taken Comments Blood Pressure 159/76 08/23/2020 1:21 PM EDT Pulse 72 08/23/2020 1:21 PM EDT Temperature 36.4 ??C (97.5 ??F) 08/23/2020 1:21 PM ED T Respiratory Rate - - Oxygen Saturation 100% 08/23/2020 1:21 PM EDT Inhaled Oxygen Concentration - - Weight 76.3 kg (168 lb 3.2 oz) 08/23/2020 1:21 P M EDT Height 180.3 cm (5' 11 ) 08/23/2020 1:21 PM EDT Body Mass Index 23.46 08/23/2020 1:21 PM EDT Plan of Treatment Health Maintenance Due Date Last Done Comments Depression Screening 1955 Preventative Health Evaluation 11/07/1961 Shingrix-Zoster Vaccine (1 of 2) 11/07/1962 Fall Risk Assessment 11/07/2008 RSV Adult > 60+ Yrs or (1 - 1-dose 75+ series) 11/07/2018 COVID-19 Vaccine (3 - Moderna risk series) 07/08/2020 06/10/2020, 05/12/2020 Influenza Vaccine (#1) 2023 , 12/29/2018, 02/03/2017, Additional history exists DTap / Tdap / Td (2 - Td or Tdap) 02/03/2027 02/03/2017 Pneumococcal Vaccine Completed 02/26/2016, 11/26/2014, 03/13/2008, Additional history exists Hepatitis B Vaccines Aged Out No long er eligible based on patient's age to complete this topic RSV Ped < 20 months Aged Out No longe r eligible based on patient's age to complete this topic Care Teams Paper Cleaner Relationship Specialty Start Date End Date Candice Choudhury MD PCP - General Internal Medicine 08/23/20
--- OUTSIDE RECORDS SUMMARY | 2024-04-07 12:32 | XMS_ITS | Encounter Summary ---
Author Organization [facility] Address [address] [place] [address] Care Team Providers Care Seed District Sales Manager Name Role Phone Candice Choudhury MD Primary Care Provider [phone] Reason for Visit * Reason Comments atherosclerosis aorta Encounter Details Date Type Department Care Team (Late st Contact Info) Description 03/13/2024 10:00 AM EST Office Visit Vascular Surgery - [place] [address] [place] [address] Guillermo Cai MD [address] [place] [address] Abdominal aortic atherosclerosis (CMS/HCC) (Primary Dx) Social History Tobacco Use Types Packs/Day Years [...] file Not on file Not on file documented as of this encounter Last Filed Vital Signs Vital Sign Reading [...] Mass Index 24.39 03/13/2024 9:56 AM EST documented in this encounter Progress Notes * Guillermo Cai MD - 03/13/2024 10:00 AM EST PATIENT: Tiffanie Feliz ENCOUNTER: 03/13/2024 EMRN: [id number] : 1945 PCP: Candice Choudhury MD CHIEF COMPLAINT: atherosclerosis aorta HPI: This is a 78 y.o. male who presents for follow-up of aortoiliac atherosclerosis. Patient was noted to have aortoiliac atherosclerosis on CT of the abdomen and pelvis. See findings below. He was referred for vascular evaluation. Patient denies any claudication in the calves, thighs or buttocks. Patient denies any rest pain ulcers or gangrene. Patient is a former smoker who quit over 20 years ago. He lives an independent active lifestyle andperforms all his activities of daily living. 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 COLONOSCOPY 11/29/2006 PROCEDURE: AK COLONOSCOPY FLX DX W/COLLJ SPEC WHEN PFRMD; COMMENT: Negative, no polyps COLONOSCOPY 04/15/2012 PROCEDURE: HISTORICAL COLONOSCOPY; COMMENT: neg, next exam approx 2019. COLONOSCOPY W/ POLYPECTOMY 05/18/2005 PROCEDURE: [place] COLSC FLX W/RMVL OF TUMOR POLYP LESION SNARE TQ; COMMENT: 1 cm tub ad ascending colon HERNIA REPAIR 03/15/2007 PROCEDURE: REPAIR INGUINAL HERNIA; COMMENT: right TONSILLECTOMY PROCEDURE: HISTORICAL TONSILLECTOMY MEDICATIONS: (reviewed, flow sheet updated) Outpatient Medications Marked as Taking for the 03/13/24 encounter (Office Visit) with Guillermo Cai MD Medication Sig Dispense Refill ascorbic acid (Vitamin C) 500 mg tablet 1 daily aspirin 81 mg EC tablet Take 1 tablet (81 mg total) by mouth 1 (one) time each day. cholecalciferol (VITAMIN D-3) 250 mcg (10,000 unit) capsule Take 10,000 Units by mouth daily. coenzyme Q-10 100 mg capsule Take 100 mg by mouth daily. ezetimibe (ZETIA) 10 mg tablet Take 1 tablet (10 mg total) by mouth 1 (one) time each day. famotidine (PEPCID) 20 mg tablet Take 1 tablet (20 mg total) by mouth 1 (one) time each day. fenofibrate (TRICOR) 145 mg tablet Take 1 tablet (145 mg total) by mouth 1 (one) time each day. FREESTYLE LANCETS MISC 1 Strip by Does not apply route 3 times daily as needed for Other. lysine 1,000 mg tablet Take 1 tablet (1,000 mg total) by mouth 1 (one) time each day. mirabegron (MYRBETRIQ) 25 mg 24 hr tablet Take 25 mg by mouth daily. multivitamin (MULTIPLE VITAMINS ORAL) 1 daily mycophenolate (CELLCEPT) 500 mg tablet Take 1,000 mg by mouth 2 times daily. omega-3 acid ethyl esters (LOVAZA) 1 gram capsule Take by mouth. pyRIDostigmine (MESTINON) 60 mg tablet Take 60 mg by mouth 2 times daily. SOCIAL HISTORY: Social History Tobacco Use Smoking status: Former Current packs/day: 0.00 Types: Cigarettes Quit date: 03/15/1999 Years since quittin.0 Smokeless tobacco: Never Substance Use Topics Alcohol use: No Drug use: No FAMILY HISTORY: Family History Problem Relation Name Age of Onset Other Dermatological Disorders Mother Small skin cancers .......specifics unknown Other Dermatological Disorders Father T cell lymphoma ....probable mycosis fungoides ALLERGIES: (reviewed, flow sheet updated) Allergies Allergen Reactions Atorvastatin Other Reaction(s): Myalgia and Joint Pain Pravastatin Other Reaction(s): Myalgia and Joint Pain Simvastatin Other Reaction(s): Myalgia and Joint Pain ROS: GENERAL: No malaise, significant weight loss or fever NECK: No lumps, goiter, pain or significant neck swelling RESPIRATORY: No cough, wheezing or shortness of breath CARDIAC: No chest pain or palpitations GI: No abdominal discomfort MUSCULOSKELETAL: SEE HPI SKIN: No lesions, rash or itching NEURO: No persistent headache, syncope, seizures, weakness or numbness VASCULAR: SEE HPI PHYSICAL EXAM: Vitals: 03/13/24 0956 BP: 110/70 Pulse: 80 Resp: 16 Weight: 77.1 kg (170 lb) Height: 1.778 m (70 ) General: Alert and oriented by 3 no acute distress, well-nourished HEENT: Normocephalic atraumatic Neck: No JVD, no carotid bruit, carotid pulses present Chest: Clear to auscultation bilaterally Cardiac: Regular rate rhythm Abdomen: Soft, nontender, nondistended, no widened aortic pulse Extremity: -Right upper extremity: 2+ RA -Left upper extremity: 2+ RA -Right lower extremity: 2+ femoral and PT pulse palpable. No DP pulse palpable. Foot warm. No ulcers or gangrene. -Left lower extremity: 2+ femoral and PT pulse palpable. No DP pulse palpable. Foot warm. No ulcersor gangrene. Integumentary: No wounds Lymphatics: No lymphadenopathy Neuro: Grossly intact DIAGNOSTIC TESTING: CT ABD & PELVIS W/CONTRAST DATE: 10/27/2023 TECHNIQUE: Multidetector-row CT of the abdomen and pelvis was performed following administration of intravenous contrast (90 cc of Isovue-370) using tailored dose modulation techniques. Images were reconstructed in the axial, coronal, and sagittal planes. COMPARISON: Abdomen/pelvis CT on March 06, 2016. HISTORY: Weight loss. History of colon polyps. Tubular adenoma of colon FINDINGS: Lower Chest: Lung bases are clear. No pleural effusions. Liver: No focal enhancing lesions. Biliary: Status post cholecystectomy. No extrahepatic biliary ductal dilatation. Minimal intrahepatic biliary ductal dilatation. Spleen: No splenomegaly. No focal lesions. Pancreas: Approximately 1.7 cm cyst in the pancreatic head (2:48) is unchanged from 2016, therefore, can be considered benign finding. No ductal dilatation. Adrenal Glands: No nodules. Kidneys/Ureters: Suggestion of bilateral duplicated collecting systems. Bilateral renal cysts. No hydronephrosis on either side. Bowel: Orally administered contrast has reached the rectum. No bowel distention. Moderate stool load within the colonic loops. Scattered diverticula along the descending and sigmoid colons. Peritoneum/Retroperitoneum: Approximately 3.1 x 2.9 cm soft tissue density in the left inguinal region, with a surgical clip at the periphery (2:113) appears to be sequela from previous surgical procedure. No free fluid or free air. Lymph Nodes: No lymphadenopathy. Pelvic Organs/Bladder: Urinary bladder is decompressed. Multiple seeds within the prostate gland. Vessels: Focal fusiform dilatation of the infrarenal abdominal aorta measuring up to 2.1 cm in diameter (coronal 80,376:65). Moderate/severe atherosclerotic disease with calcifications. Bones/Soft Tissues: Vertebroplasty material within the T12 and L1 vertebral bodies. Chronic compression deformities of T11 and L5 vertebral bodies. No soft tissue mass. IMPRESSION: IMPRESSION: 1. No suspicious mass or lymphadenopathy. 2. Soft tissue density in the left inguinal region probably sequela from previous surgical procedure. 3. Additional chronic findings as above. Not Vldtd I independently reviewed the studies along with the images. ASSESSMENT: 1. Abdominal aortic atherosclerosis (CMS/HCC) PLAN: 78 y.o. male with palpable bilateral posterior tibial artery pulses bilaterally. He clinically has no significant peripheral arterial occlusive disease. CT of the abdomen pelvis did show aortoiliac atherosclerosis but no significant stenosis. No intervention is warranted. He is currently on aspirinand Zetia. He has a statin allergy. Patient to continue maximal medical management. Patient follow-up as necessary. Patient was counseled on risk factor modification. We discussed the natural pathophysiology of atherosclerosis. 35 minutes spent on patient encounter including time spent with patient, chart review, review of imaging/diagnostic studies, all necessary communications and documentation. documented in this encounter Plan of Treatment Not on file documented as of this encounter Visit Diagnoses Diagnosis Abdominal aortic atherosclerosis (CMS/HCC)- Primary Atherosclerosis of aorta documented in this encounter Historical Medications * This list may reflect changes made after this encounter. Medication Sig Dispensed Refills Start Date End Date aspirin 81 mg EC tablet Take 1 tablet (81 mg total) by mouth 1 (one) time each day. added in this encounter Care Teams Seed District Sales Manager Relationship Specialty Start Date End Date Candice Choudhuyr MD [address] [place] [address] PCP - General Internal Medicine 05/17/20 documented as of this encounter
[2024-04-07 16:05] LABS: Anion Gap 11 (12-20); Blood Urea Nitrogen 22 mg/dL (9-16); Calcium 9.8 mg/dL (8.4-10.2); Carbon Dioxide 25 mmol/L (22-29); Chloride 110 mmol/L (96-108); Cholesterol 186 mg/dL (<200); Estimated Glomerular Filt Rate > 60; Glucose Random 109 mg/dL (60-115); HDL Cholesterol 57 mg/dL (>40); LDL Cholesterol Calculated 113 mg/dL (<100); Potassium 4.2 mmol/L (3.3-5.1); Sodium 142 mmol/L (135-145); Triglycerides 81 mg/dL (<150)
[2024-04-10 16:33] LABS: CRP High Sensitivity 0.4 mg/L
== END 2024-04-07 10:49 | disposition home or self-care (01) ==
LOC: HO.WFDLDS 10:48
PROVIDERS: Internal Medicine Cardiovascular Disease; Visit Provider Internal Medicine
DX: E78.5 Hyperlipidemia, unspecified (principal); I25.10 Atherosclerotic heart disease of native coronary artery without angina pectoris
CPT/HCPCS: 36415; 80048; 80061; 86141

== ENCOUNTER 2024-10-06 09:56 | Outpatient (AMB) | payer MEDICARE, OTHER, SELFPAY ==
--- OUTSIDE RECORDS SUMMARY | 2024-10-06 10:10 | XMS_ITS | Encounter Summary ---
Author Organization [facility] Address [address] [place] [address] Care Team Providers Care Sand Slinger Name Role Phone Candice Choudhury MD Primary Care Provider [phone] Encounter Details Date Type Department Care Team Description 12/16/2020 Marine Structural Designer Report Medical Records [address] [place] [id number] Davidson Zapata MD Social History Tobacco Use Types Packs/Day Years Used Date Smoking Tobacco: Former Cigarettes Q uit: 03/15/1999 Smokeless Tobacco: Never Alcohol Use Standard Drinks/Week Comments No 0 (1 standard drink = 0.6 oz pur e alcohol) Sex Assigned at Date Recorded Male 03/11/2021 10:50 PM EST Job Start Date Occupation Industry Not on file Not on file Not on file COVID-19 Exposure Response Date Recorded In the last month, have you been in contact with someone who was confirmed or suspected to have Coronavirus / COVID-19? No / Unsure 11/20/2020 7:57 AM EDT documented as of this encounter Plan of Treatment Not on file documented as of this encounter Visit Diagnoses Not on filedocumented in this encounter Care Teams Sand Slinger Relationship Specialty Start Date End Date Candice Choudhury MD [address] [place] [id number] PCP - General Internal Medicine 05/17/20 documented as of this encounter
--- OUTSIDE RECORDS SUMMARY | 2024-10-06 10:10 | XMS_ITS | Clinical Summary ---
Author Organization [facility] Address [address] [place] [address] Care Team Providers Care Team Foreman Name Role Phone Candice Choudhury MD Primary Care Provider [phone] Allergies Active Allergy Reactions Criticality Noted Date Comments Atorvastatin 08/23/2020 Pravastatin 08/23/2020 Simvastatin 08/23/2020 Medications Medication Sig Dispensed Refills Start Date End Date Status mycophenolate (CELLCEPT) 500 MG tablet Take 500 mg by mouth 2 (two) times a day. 0 Active Cholecalciferol (Vitamin D3) 250 MCG (64937 UT) capsule Take 10,000 Units by mouth [...] 1 capsule by mouth daily. 0 Active [place]-3 1000 MG CAPS Take 1 capsule by [...] 72 08/23/2020 1:21 PM EDT Temperature 36.4 C (97.5 F) 08/23/2020 1:21 PM EDT Respiratory Rate - - Oxygen Saturation 100% [...] series) 07/08/2020 06/10/2020, 05/12/2020 Influenza Vaccine (#1) 2024 , 12/29/2018, 02/03/2017, Additional history exists DTap [...] age to complete this topic Care Teams Team Foreman Relationship Specialty Start Date End Date Candice Choudhury MD PCP - General Internal Medicine 08/23/20
--- OUTSIDE RECORDS SUMMARY | 2024-10-06 10:10 | XMS_ITS | Clinical Summary ---
Author Organization [address] [place] [address] [place] [address] Phone Care Team Providers Care Anesthesiologist/Physician Name Role Phone Cnadice Choudhury MD Primary Care Provider [phone] Allergies Active Allergy Reactions Criticality Noted Date Comments Atorvastatin 08/29/2012 Other Reaction(s): Myalgia and Joint Pain Pravastatin 08/29/2012 Other Reaction(s): Myalgia and Joint Pain Simvastatin 08/29/2012 Other Reaction(s): Myalgia and Joint Pain Medications famotidine (PEPCID) 20 mg tablet Take 1 tablet (20 mg total) by mouth 1 (one) time each day. 2023 Active cholecalciferol (VITAMIN D-3) 250 mcg (10,000 [...] Active multivitamin (MULTIPLE VITAMINS ORAL) 1 daily Activ e aspirin 81 mg EC tablet Take 1 tablet (81 mg total) by mouth 1 (one) time each day. Active ezetimibe (ZETIA) 10 mg tablet TAKE 1 TABLET BY MOUTH EVERY DAY 30 tablet 05/04/2024 Active fenofibrate (TRICOR) 145 mg tablet Take 1 tablet (145 mg total) by mouth 1 (one) time each day. 30 tablet 07/03/2024 Active Active Problems Problem Noted Date Diagnosed Date Gall stones 02/01/2024 Pancreatic mass 02/01/2024 Overview (02/01/2024): Likely benign cyst, due for 6 month ultrasound February 2016 Thoracic compression fracture ([facility] V24, [facility] V28) 06/16/2023 Overview (02/01/2024): 01/04 fell, T11,12, L5 mild compression fx, kyphoplasty CKD (chronic kidney disease) stage 3, GFR 30-59 ml/min ([facility] V24, [facility] V28) 07/24/2022 Microalbuminuria 07/24/2022 Myasthenia gravis ([facility] V24, [facility] V28) 05/2019 Osteopenia 09/22/2018 Hypercalcemia 09/08/2017 Prostate cancer ([facility] V24, [facility] V28) 09/11 Overview (02/01/2024): 05/05 tho 8; RT, on eligard Type II diabetes mellitus wi th renal manifestations ([facility] V24, [facility] V28) 04/24/2005 Pure hypercholesterolemia 04/23/2005 Encounters Date Type Department Care Team Description 07/25/2024 Telephone Adult Medicine [address] [phone] Denae Ayala PA from Last 3 Months Immunizations Name Administration [...] HISTORICAL ADENOIDECTOMY COLONOSCOPY W/ POLYPECTOMY 05/18/2005 PROCEDURE: [place] COLSC FLX W/RMVL OF TUMOR POLYP LESION SNARE TQ; COMMENT: 1 cm tub ad ascending colon COLONOSCOPY 11/29/2006 PROCEDURE: [place] COLONOSCOPY FLX DX W/COLLJ SPEC WHEN PFRMD; [...] keratosis, hx of Thoracic compression fractur e (CMS/HCC V24, CMS/HCC V28) 06/16/2023 DX:Thoracic compression frac ture (HCC); COMMENT: 01/04 fell, T11,12, L5 mild compression fx, kyphoplasty Family History Medical History Relation Name Comments Other Dermatological Disorders Father T cell lymphoma ....probable mycosis fungoides Other Dermatological Disorders Mother Small skin cancers .......specifics unknown Relation Name Status Comments Daughter Alive 2 healthy Father (Age 84) T cell lym phoma, [place],CABG Maternal Grandfather DM Maternal Grandmother (Age 83) Co nancie cancer Mother (Age 86) [place] [address] Cancer Paternal Grandfather Old [...] Recorded Sex Assigned at Not on file Legal Sex Male 5:28 PM EST Gender Identity Not on file Sexual Orientation Not on file Obstetrics History Last Filed [...] Vaccines (1 of 2) 11/07/1962 RSV Immunization Adult Patients (1 - 1-dose 75+ series) 11/07/2018 Colorectal Cancer Screening: Colonoscopy 02/14/2022 Medicare Annual Wellness Visit 02/14/2022 Social Influencers of Health Screening 02/14/2022 COVID-19 Vaccine ( season) 2023 02/17/2021, 06/10/2020, 05/12/2020 Depression Screening 03/15/2024 10/18/2023 Diabetes: Blood Sugar Control Test (HGBA1C) 04/19/2024 10/18/2023, 10/18/2023 Falls Risk Assessment 06/15/2024 06/16/2023 Diabetes: Annual Urine Albumin-Creatinine Ratio (uACR) 10/17/2024 10/18/2023 Diabetes: Annual Foot Exam 10/17/2024 10/18/2023 Influenza Vaccine (#1) 2024 , 01/29/2022, 12/18/2020, Additional history exists Diabetes: Annual GFR (Glomerular Filtration Rate) 06/10/2025 06/10/2024, 06/10/2024, 10/18/2023, Additional history exists Hypertension/CHF/CAD Annual BMP Blood Test 06/10/2025 06/10/2024, 06/10/2024, 10/18/2023, Additional history exists DTaP,Tdap,and Td Vaccines (3 - Td or Tdap) 02/03/2027 02/03/2017, 09/08/2005 Cholesterol Screening (Lipid Panel) 10/17/2028 10/18/2023, 10/18/2023 Pneumococcal Vaccine: 50+ Years Completed 02/26/2016, 11/26/2014, 03/13/2008, Additional history exists HIB Vaccines Aged Out [...] patient's age to complete this topic Meningococcal B Vaccine Aged Out No l onger eligible based on patient's age to complete this topic RSV Immunization Patients Under 20 months Aged Out No longer eligible based on patient's age to complete this topic Varicella Vaccines Aged Out No longer eligible based on patient's age to complete this topic Procedures Procedure Name Priority Date/Time Associated Diagnosis Comments DEPRESSION SCREENING Routine 10/18/2023 URINE ALBUMIN CREATININE RATIO Routine 10/18/2023 ANNUAL BMP BLOOD TEST Routine 10/18/2023 HEMOGLOBIN A1C Routine 10/18/2023 LIPID PANEL Routine 10/18/2023 DIABETES FOOT EXAM Routine 10/18/2023 FALLS RISK ASSESSMENT Routine 06/16/2023 from Last 3 Months or Most Recently Relevant to Health Maintenance Results * Urine Albumin Creatinine Ratio (10/18/2023) [facility] Urine Albumin Creatinine Ratio abstracted Result [facility] Provider HEALTH MAINTENANCE Final Result * Annual BMP Blood Test (10/18/2023) [facility] Annual BMP Blood Test abstracted Result [facility] Provider HEALTH MAINTENANCE Final Result * Depression Screening (10/18/2023) [facility] Depression Screening abstracted Result [facility] Provider HEALTH MAINTENANCE Final Result * Diabetes Foot Exam (10/18/2023) [facility] Diabetes: Annual Foot Exam abstracted Result [facility] Provider HEALTH MAINTENANCE Final Result * Hemoglobin A1c (10/18/2023) [facility] Hemoglobin A1C 6.1 <=6.5 % Blood Venous blood specimen / Unknown Historical Provider LAB BLOOD ORDERABLES Dahiana l Result * (ABNORMAL) Lipid panel (10/18/2023) LDL/HDL Ratio 4 0 - 4 Triglycerides 188(A) 0 - 150 mg/dL Cholesterol 269(A) 0 - 200 mg/dL HDL 67 >=40 mg/dL LDL Cholesterol 165(A) 0 - 100 mg/dL Blood Venous blood specimen / Unknown Historical Provider LAB BLOOD ORDERABLES Dahiana l Result * Hm Falls Risk Assessment (06/16/2023) Falls Risk Assessment abstracted [facility] Provider HEALTH MAINTENANCE Final Result from Last 3 Months or Most Recently Relevant to Health Maintenance Insurance [facility]ICARE [facility] Care Teams Anesthesiologist/Physician Relationship Specialty Start Date End Date Candice Choudhury MD [address] [place] [address] PCP - General Internal Medicine 05/17/20
--- OUTSIDE RECORDS SUMMARY | 2024-10-06 10:10 | XMS_ITS | Patient Health Record ---
Author Organization [facility] Address [address] [place] [address] Care Team Providers Care Sand Sifter Name Role Phone Nacho Gaines MD Primary Care Provider Unavailabl e Black, Lashon Unavailable [phone] Allergies Allergen (clinical drug ingredient) Drug/Non Drug Allergy documented on EMR Reaction Allergy Type Onset Date Status atorvastatin Lipitor joint aches Drug Allergy Ac tive Reason For Referral No Information Medications Medication SIG (Take, Route, Fr equency, Duration) Notes Start Date End Date Status Zetia 10 MG 1 tablet Orally Once a day Active Fenofibrate 145 MG 1 tablet Orally Once a day Active Social History Tobacco use other than smoking: Question Answer Notes Are you an other tobacco user? 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 Plan Of Treatment Pending Test Test Name Order Date X ray : Foot, left 3V 10/12/2013 [id number] NAIL, -11/23/2013 [id number] NAIL, -02/27/2014 [id number] NAIL, -05/28/2014 [id number] NAIL, -10/12/2013 Insurance Providers Payer Name Payer Address Payer Phone Subscriber Number Group Number Insured Name Patient Relationship to Insured Coverage Start Date Coverage End Date Medicare [facility] [address] [place] [address] [id number] Tiffanie Feliz Self - [facility] the insured [facility] [address] [place] [id number] TriniMichaelGarrison Self - patient is the insured Medical (General) History Medical History History ICD Code Cholesterol Diabetic Measles Mumps Chicken pox Surgical History Surgery Date(Month/Year) hernia gallbladder,hernia 05/2014
--- OUTSIDE RECORDS SUMMARY | 2024-10-06 10:10 | XMS_ITS ---
Author Name [facility] Organization Unknown History of Medication Use Medication Directions Dispensed Refills Start Date End Date Stat us clindamycin 1 % lotion APPLY TO AREA ON THE RIGHT SIDE OF THE FACE TWICE DAILY FOR 4 WEEKS OR UNTIL SPOT GOES AWAY active ezetimibe active ezetimibe 10 mg tablet TAKE 1 TABLET BY MOUTH EVERY DAY active famotidine 20 mg tablet TAKE 1 TABLET BY MOUTH EVERY DAY active fenofibrate nanocrystallized 145 mg tablet TAKE 1 TABLET BY MOUTH EVERY DAY active mycophenolate mofetil 500 mg tablet TAKE 2 TABLETS BY MOUTH TWICE A DAY active pyridostigmine bromide a ctive pyridostigmine bromide 60 mg tablet TAKE 1 TABLET BY MOUTH 2 TIMES A DAY. active Allergies Allergen Reaction Severity Comment Documented Date Source Statu s [id number] REDUCTASE INHIBITORS ENS_AONECT Problems Problem Status Onset Date Problem Type Date of Resoluti on Source Closed fracture of distal end of radius active 2024-04-19 ProblemAct ENS_AON ECT Encounters Encounter Type Encounter Reason Primary Diagnosis Location Date Ambulatory [facility] 05/14/2024 Ambulatory [facility] 04/19/2024 Ambulatory [facility] 04/18/2024 Ambulatory [facility] 04/18/2024 Ambulatory [facility] [place] 04/18/2024 Ambulatory [facility] [place] 04/15/2024 Ambulatory [facility] [place] 04/15/2024 Ambulatory [facility] 04/15/2024 Ambulatory [facility] 04/15/2024 Care Team Organization Name Specialty Phone Email Start Date End Da te [facility] Kelsey Santos Primary Care 11/19/202210/13 [facility] Shadi Abrams Primary Care 01/20/202210/31
--- OUTSIDE RECORDS SUMMARY | 2024-10-06 10:11 | XMS_ITS | Encounter Summary ---
Author Organization [facility] Address [address] [place] [id number] Phone Care Team Providers Care Resource Efficiency Manager Name Role Phone Alicia Cosme MD Primary Care Provider Candice Choudhury MD Primary Care Provider [phone] Reason for Referral * Consultation (Elective) - Closed Specialty Diagnoses / Procedures Referred By Day altamirano Referred To Contact Neurology Diagnoses Dysarthria Myasthenia gravis Alicia Cosme MD Phone: tel: fax: [address] [address] Phone: tel: Referral ID Status Reason Start Date Expiration Date Visits Re quested Visits Authorized [id number] Closed 04/04/2019 04/04/2020 1 1 Encounter Details Date Type Department Care Team (Late st Contact Info) Description 04/04/2019 Transcribe Orders [facility] Department of Neurology [address] [place] [address], [address], [address] [place] [address] Alicia Cosme MD [address] [place] [phone] Dysarthria (Primary Dx); Myasthenia gravis Social History Tobacco Use Types Packs/Day Years Used Date Smoking Tobacco: Never Assessed Sex and Gender Information Value Date Recorded Sex Assigned at Male 09/18/2019 12:52 PM EDT Legal Sex Male 9:37 AM EST Gender Identity Male 09/18/2019 12:52 PM EDT Sexual Orientation Straight 09/18/2019 12 :52 PM EDT documented as of this encounter Plan of Treatment Upcoming Encounters Date Type Department Care Team (Late st Contact Info) Description 11/28/2024 1:00 PM EDT Office Visit [facility] Neuromuscular Service [address] [place] [address] Natasha Parkinson MD, MPH [address] [place] [address] [email or web address] Scheduled Referrals Name Type Priority Associated Diagnoses Order Schedule Ambulatory referral to [facility] Neurology Outpatient Referral Routine Dysarthria Myasthenia gravis Ordered: 04/04/2019 documented as of this encounter Visit Diagnoses Diagnosis Dysarthria- Primary Myasthenia gravis Myasthenia gravis without exacerbation documented in this encounter Care Teams Resource Efficiency Manager Relationship Specialty Start Date End Date Alicia Cosme MD PCP - General Internal Medicine 02/07/19 07/09/20 Candice Choudhury MD [address] [place] [address] PCP - General Internal Medicine 07/10/20 documented as of this encounter Additional Source Comments The information contained in this document represents components of the legal health record. It is not the complete legal health record.[facility]
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
[2024-10-06 10:22] VITALS: BP 120/82; PULSE 78; BMI 21.2
== END 2024-10-06 10:55 | disposition home or self-care (01) ==
LOC: HO.HCS 09:56
PROVIDERS: PCP Internal Medicine; Visit Provider Internal Medicine Cardiovascular Disease
DX: I25.10 Atherosclerotic heart disease of native coronary artery without angina pectoris (principal)
CPT/HCPCS: 99214; G2211

== ENCOUNTER → 2024-10-06 09:56 | Outpatient (BNVA) | payer MEDICARE, OTHER, SELFPAY | PROVIDERS: PCP Internal Medicine; Visit Provider Internal Medicine Cardiovascular Disease | DX: I25.10 Atherosclerotic heart disease of native coronary artery without angina pectoris (principal); Z79.899 Other long term (current) drug therapy | CPT/HCPCS: 99212 ==